=== PATIENT | female | born 1955 | race Caucasian/White ===

== ENCOUNTER 2018-10-22 15:28 | Inpatient (IN) | payer SELFPAY ==
[~2018-10-22] VITALS: Ht 162.6 cm; Wt 51.0 kg
[2018-10-22] MEDS ORDERED: OMEP20TA5 PO (15:50)
[2018-10-22] MEDS ORDERED: LORAZEPAM 2 MG/1 ML VIAL IV ONE ×2 (16:00→17:15)
[2018-10-22] MEDS ORDERED: ONDANSETRON 4 MG/2 ML VIAL IV ONE (16:00)
[2018-10-22] MEDS ORDERED: IV NORMAL SALINE 1000 ML BAG IV ONE (16:00)
[2018-10-22] MEDS ORDERED: ONDANSETRON 4 MG/2 ML VIAL ONE (16:07)
[2018-10-22] MEDS ORDERED: LORAZEPAM 2 MG/1 ML VIAL ONE ×2 (16:08→17:11)
[2018-10-22 16:11] LABS: BASOPHILS # (AUTO) 0.1 K/uL (0.0-8.0); BASOPHILS % (AUTO) 0.6 % (0.0-2.0); HEMOGLOBIN 13.5 g/dL (10.9-14.3); LYMPHOCYTES # (AUTO) 0.4 K/uL (20.0-40.0); LYMPHOCYTES % (AUTO) 3.7 % (20.5-51.5); MEAN CORPUSCULAR HGB CONC 33 g/dL (32.3-35.6); MONOCYTES # (AUTO) 0.3 K/uL (2.0-10.0); MONOCYTES % (AUTO) 3.3 % (0.0-11.0); NEUTROPHILS # (AUTO) 9.6 K/uL (1.8-8.9); NEUTROPHILS % (AUTO) 92.4 % (38.5-71.5); PLATELET COUNT (AUTO) 211 K/uL (179-408); WHITE BLOOD COUNT (AUTO) 10.4 K/uL (3.8-11.8)
--- NOTE | 2018-10-22 16:12 | NUR ---
PT A/OX4, PRESENTS TO THE ER ESCORTED BY A STAFF MEMBER FROM "[facility]. PER PT'S REPORT, SHE CHECKED INTO THE [facility] A FEW HOURS AGO AND WAS HAVING ETOH WITHDRAWAL SYMPTOMS. PT REPORTS THAT HER LAST ALCOHOLIC DRINK WAS YESTERDAY. PT IS HYPERTENSIVE, ER MD AWARE. PT DENIES C/P, SOB, DIZZINESS, HEADACHE.
--- NOTE | 2018-10-22 16:19 | NUR ---
CORRECTION: LAST ALCOHOLIC DRINK WAS 2 DAYS AGO.
[2018-10-22 16:20] LABS: CARBON DIOXIDE 16 mmol/L (21-32); CHLORIDE 90 mmol/L (98-107); CREATININE 1.8 mg/dL (0.6-1.3); GLUCOSE 200 mg/dL (74-106); POTASSIUM 3.5 mmol/L (3.5-5.1); UREA NITROGEN, BLOOD 9 mg/dL (7-18)
[2018-10-22 16:25] LABS: ALKALINE PHOSPHATASE 168 U/L (50-136); ASPARTATE AMINOTRANSFERASE 146 U/L (15-37); BILIRUBIN,DIRECT 0.9 mg/dL (0.0-0.2); TOTAL PROTEIN, SERUM 7.5 g/dL (6.4-8.2)
[2018-10-22 16:26] LABS: ETHANOL < 3 MG/DL (0-0)
[2018-10-22 16:27] LABS: ACETAMINOPHEN < 2.0 ug/mL (10-30)
[2018-10-22 16:41] LABS: *BILIRUBIN,URIN 1+ (NEGATIVE); *BLOOD, URINE Trace-lysed (NEGATIVE); *CLARITY,URINE CLOUDY (CLEAR); *KETONES,URINE TRACE (NEGATIVE); LEUKOCYTE ESTERASE ,URINE 1+ (NEGATIVE); NITRITE, URINE NEGATIVE (NEGATIVE); UGLUCOSE NEGATIVE (NEGATIVE)
[2018-10-22 16:48] LABS: ALANINE AMINOTRANSFERASE 102 U/L (14-59)
[2018-10-22 16:54] LABS: *COLOR,URINE DARK YELLOW (YELLOW)
[2018-10-22 16:55] LABS: BACTERIA,URINE MANY /HPF (NONE SEEN); SQUAMOUS EPITHELIAL CELL,UR MANY /HPF (NONE SEEN)
[2018-10-22 16:59] LABS: *AMPHETAMINE, URINE NEGATIVE (NEGATIVE); *BARBITURATE, URINE NEGATIVE (NEGATIVE); *CANNABINOID, URINE NEGATIVE (NEGATIVE); *COCCAINE, URINE NEGATIVE (NEGATIVE); *OPIATE, URINE NEGATIVE (NEGATIVE); *PHENCYCLIDINE SCREEN,URINE NEGATIVE (NEGATIVE)
--- NOTE | 2018-10-22 17:05 | NUR ---
WARREN GRIFFIN AT BEDSIDE FOR PT UPDATE.
--- NOTE | 2018-10-22 18:20 | NUR ---
[facility] [phone].
--- NOTE | 2018-10-22 18:27 | NUR ---
ADMITTING REPORT GIVEN TO LUPE MOSES.
--- NOTE | 2018-10-22 18:40 | NUR ---
Pt. admitted to 216, under care of JUAN MIGUEL HATHAWAY. Belongs List completed
[2018-10-22 18:56] VITALS: BP 131/77
--- NOTE | 2018-10-22 18:58 | NUR ---
Patient made comfortable in room 216, A/Ox3, tele monitor on, denies pain. Oriented to room and call light, educated patient on using call light for assistance, patient verbalized understanding, bed alarm on, will endorse admission to manager machine
[2018-10-22] MEDS ORDERED: LORAZEPAM 2 MG/1 ML VIAL IV PRN (19:00)
[2018-10-22] MEDS ORDERED: ONDANSETRON 4 MG/2 ML VIAL IV PRN (19:00)
[2018-10-22] MEDS ORDERED: MAGNESIUM HYDROXIDE 30 ML LIQUID UDC PO PRN (19:00)
[2018-10-22] MEDS ORDERED: ZOLPIDEM 5 MG TABLET PO PRN (19:00)
[2018-10-22] MEDS ORDERED: ACETAMINOPHEN 325 MG TABLET PO PRN (19:00)
[2018-10-22] MEDS ORDERED: Z GUARD REMEDY PASTE 57 GM TUBE TOP PRN (19:00)
--- NOTE | 2018-10-22 19:20 | NUR ---
RECEIVED PT AWAKE, ALERT AND ORIENTEDX4. PT SHOWS NO SIGNS OF ACUTE DISTRESS.PT IV INTACT. ADMISSION PROCESS AND CARE PLAN INITIATED. LONG TERM ASSESSMENT DONE. SAFETY AND COMFORT PROVIDED. WILL CONTINUE TO MONITOR
[2018-10-22 19:27] VITALS: BP 112/69
[2018-10-22] MEDS: IV NS 1000 ML 1,000 ML IV PRN (20:14)
[2018-10-22] MEDS: CHLORDIAZEPOXIDE HCL 25 MG CAPSULE PO SCH (20:22)
[2018-10-22] MEDS: THIAMINE HCL 100 MG TABLET PO SCH (20:22)
[2018-10-22] MEDS: MULTIVITAMINS,THERAPEUTIC TABLET PO SCH (20:22)
[2018-10-22] MEDS: FOLIC ACID/VITAMIN B COMP W-C TABLET PO SCH (20:22)
[2018-10-22] MEDS: NICOTINE 14 MG/24HR PATCH TD SCH (20:23)
[2018-10-22] MEDS: CEFTRIAXONE 1 G in IV DEXTROSE 5% 50 ML IV SCH (20:38)
[2018-10-22 23:44] VITALS: BP 111/73
[2018-10-23 03:28] VITALS: BP 111/76
--- NOTE | 2018-10-23 06:08 | NUR ---
PT SLEPT THROUGHOUT THE SHIFT. PT SHOWS NO SIGNS OF DISTRESS. PT IV INTACT. PT COOPERATIVE WITH CARE. SAFETY AND COMFORT PROVIDED. WILL ENDORSE ACCORDINGLY TO INCOMING NURSE FOR CONTINUITY OF CARE.
[2018-10-23] MEDS: PANTOPRAZOLE SODIUM 40 MG TABLET.DR PO SCH (06:19)
[2018-10-23] MEDS: IV NS 1000 ML 1,000 ML IV PRN (06:24)
[2018-10-23] MEDS: HYDROCODONE/APAP 5-325MG TABLET PO PRN ×2 (06:36→13:14)
--- NOTE | 2018-10-23 06:37 | NUR ---
PT GIVEN NORCO AT 636H FOR PAIN SCALE OF 9/1O. PT TOLERATED IT WELL WILL CONTINUE TO MONITOR.
[2018-10-23 06:39] LABS: BASOPHILS % (AUTO) 0.5 % (0.0-2.0); EOSINOPHILS % (AUTO) 0.3 % (0.0-7.0); HEMATOCRIT 31.8 % (31.2-41.9); HEMOGLOBIN 10.6 g/dL (10.9-14.3); LYMPHOCYTES # (AUTO) 1.9 K/uL (20.0-40.0); LYMPHOCYTES % (AUTO) 37.3 % (20.5-51.5); MEAN CORPUSCULAR HEMOGLOBIN 32.9 uug (24.7-32.8); MEAN CORPUSCULAR HGB CONC 33 g/dL (32.3-35.6); MEAN CORPUSCULAR VOLUME 98.5 fL (75.5-95.3); MONOCYTES # (AUTO) 0.1 K/uL (2.0-10.0); MONOCYTES % (AUTO) 2.9 % (0.0-11.0); PLATELET COUNT (AUTO) 121 K/uL (179-408); RED BLOOD CELL COUNT(AUTO) 3.23 MIL/uL (3.63-4.92); WHITE BLOOD COUNT (AUTO) 5.1 K/uL (3.8-11.8)
[2018-10-23 07:01] LABS: BILIRUBIN,TOTAL 1.3 mg/dL (0.2-1.0); MAGNESIUM 1.4 mg/dL (1.8-2.4); PHOSPHOROUS 1.3 mg/dL (2.5-4.9); TOTAL PROTEIN, SERUM 5.4 g/dL (6.4-8.2)
[2018-10-23 07:10] LABS: POTASSIUM 2.1 mmol/L (3.5-5.1)
[2018-10-23] MEDS ORDERED: NEUTRA PHOS PACKET PO ONE (07:30)
[2018-10-23] MEDS: POTASSIUM CHLORIDE 50 ML IV SCH ×4 (08:43→12:04)
[2018-10-23] MEDS: THIAMINE HCL 100 MG TABLET PO SCH (08:48)
[2018-10-23] MEDS: FOLIC ACID/VITAMIN B COMP W-C TABLET PO SCH (08:48)
[2018-10-23] MEDS: MULTIVITAMINS,THERAPEUTIC TABLET PO SCH (08:48)
[2018-10-23] MEDS: CHLORDIAZEPOXIDE HCL 25 MG CAPSULE PO SCH ×2 (08:48→17:00)
[2018-10-23] MEDS: NICOTINE 14 MG/24HR PATCH TD SCH (09:56)
--- NOTE | 2018-10-23 10:16 | NUR ---
Received pt in bed. A/OX4. No acute distress noted. Denies CP or SOB. All due medications given as ordered and tolerated well. IV patent and intact. Skin care rendered. All pt needs attended and met. Kept pt. clean and dry. Safety measures maintained. Call light and all frequently used items in place. Will continue to monitor accordingly.
[2018-10-23 11:10] VITALS: BP 97/56
[2018-10-23] MEDS: MAGNESIUM SULFATE/D5W 100 ML IV SCH ×3 (13:10→15:34)
[2018-10-23 15:23] LABS: CREATININE 1.3 mg/dL (0.6-1.3)
[2018-10-23 15:36] LABS: POTASSIUM 2.4 mmol/L (3.5-5.1)
[2018-10-23 16:32] VITALS: BP 92/54
--- NOTE | 2018-10-23 18:08 | NUR ---
End of shift: All due medications administered as ordered and tolerated well. No new skin condition noted. Kept pt. clean and dry. No ASE from IV infusion. Received CL k:2.4, aware with repeat BMP in AM. Call light and all frequently used items within pt. reach. Will endorse to oncoming shift accordingly.
--- NOTE | 2018-10-23 19:20 | NUR ---
RECEIVED PT AWAKE, ALERT AND ORIENTEDX4. PT SHOWS NO SIGNS OF ACUTE DISTRESS. IV INTACT. SAFETY AND COMFORT PROVIDED. WILL CONTINUE TO MONITOR.
[2018-10-23] MEDS: CEFTRIAXONE 1 G in IV DEXTROSE 5% 50 ML IV SCH (19:23)
[2018-10-23 19:31] VITALS: BP 91/50
[2018-10-23 23:33] VITALS: BP 93/61
[2018-10-24] MEDS: IV NS 1000 ML 1,000 ML IV PRN (02:45)
[2018-10-24 03:46] VITALS: BP 93/58
[2018-10-24] MEDS: PANTOPRAZOLE SODIUM 40 MG TABLET.DR PO SCH (06:02)
--- NOTE | 2018-10-24 06:11 | NUR ---
PT SLEPT THROUGHOUT THE SHIFT. PT SHOWS NO SIGNS OF ACUTE DISTRESS. IV INTACT AND PATENT.PRESCRIBED MEDICATION GIVEN AND PT TOLERATED IT WELL. SAFETY AND COMFORT PROVIDED. WILL ENDORSE ACCORDINGLY TO INCOMING NURSE FOR CONTINUITY OF CARE.
[2018-10-24 06:36] LABS: BASOPHILS % (AUTO) 1.1 % (0.0-2.0); EOSINOPHILS % (AUTO) 1.1 % (0.0-7.0); HEMATOCRIT 25.9 % (31.2-41.9); HEMOGLOBIN 8.9 g/dL (10.9-14.3); LYMPHOCYTES # (AUTO) 1.4 K/uL (20.0-40.0); LYMPHOCYTES % (AUTO) 34.8 % (20.5-51.5); MEAN CORPUSCULAR HGB CONC 35 g/dL (32.3-35.6); MEAN CORPUSCULAR VOLUME 98.5 fL (75.5-95.3); MONOCYTES # (AUTO) 0.2 K/uL (2.0-10.0); NEUTROPHILS # (AUTO) 2.3 K/uL (1.8-8.9); PLATELET COUNT (AUTO) 91 K/uL (179-408); RED BLOOD CELL COUNT(AUTO) 2.63 MIL/uL (3.63-4.92); WHITE BLOOD COUNT (AUTO) 3.9 K/uL (3.8-11.8)
[2018-10-24 06:47] LABS: CREATININE 0.9 mg/dL (0.6-1.3); MAGNESIUM 1.7 mg/dL (1.8-2.4); PHOSPHOROUS 1.5 mg/dL (2.5-4.9)
[2018-10-24 06:50] LABS: POTASSIUM 2.7 mmol/L (3.5-5.1)
--- NOTE | 2018-10-24 06:57 | NUR ---
RECEIVED A CALL FROM LAB. CRITICAL VALUE OF POTASSIUM 2.7. CONTACTED THE WAITING FOR ORDERS. CHARGE NURSE AWARE. PT STABLE. WILL ENDORSE TO ONCOMING NURSE.
[2018-10-24 07:33] LABS: LYMPHOCYTES % (MANUAL) 27 % (20-40); MONOCYTES % (MANUAL) 6 % (2-10); NEUTROPHILS % (MANUAL) 66 % (42-75)
[2018-10-24 07:34] LABS: EOSINOPHILS % (MANUAL) 1 % (0-8)
[2018-10-24] MEDS: MULTIVITAMINS,THERAPEUTIC TABLET PO SCH (08:25)
[2018-10-24] MEDS: FOLIC ACID/VITAMIN B COMP W-C TABLET PO SCH (08:25)
[2018-10-24] MEDS: THIAMINE HCL 100 MG TABLET PO SCH (08:25)
[2018-10-24] MEDS: CHLORDIAZEPOXIDE HCL 25 MG CAPSULE PO SCH ×2 (08:25→16:28)
[2018-10-24] MEDS: NEUTRA PHOS PACKET PO SCH ×2 (08:25→12:49)
[2018-10-24] MEDS: NICOTINE 14 MG/24HR PATCH TD SCH (08:26)
[2018-10-24] MEDS: MAGNESIUM SULFATE/D5W 100 ML IV SCH ×2 (08:29→09:36)
--- NOTE | 2018-10-24 08:53 | NUR ---
Received pt in bed. A/OX4. No acute distress noted. Denies CP or SOB. All due medications given as ordered and tolerated well. IV on RH tender to touch per pt. Started new PIV 24G on LW with good blood return, x2 attempt, flushed with 0.9% NS with no resistance met then secured with tegaderm. ACOUSTICAL LOGGING ENGINEER aware of low mg, K, and phos level with new orders. Per ACOUSTICAL LOGGING ENGINEER will discharge today 10/24/18. Skin care rendered. All pt needs attended and met. Kept pt. clean and dry. Safety measures maintained. Call light and all frequently used items in place. Will continue to monitor accordingly.
[2018-10-24] MEDS: HYDROCODONE/APAP 5-325MG TABLET PO PRN (09:25)
[2018-10-24] MEDS: POTASSIUM CHLORIDE 50 ML IV SCH ×4 (10:56→13:58)
--- NOTE | 2018-10-24 11:00 | NUR ---
Pt. seen fidgeting with IV line and pacing in hallway back to room. Approached pt. in a calm manner, seen Pt. with IV line pulled out on the LT. wrist. No active bleeding noted. Pt. verbalized anxiety. When asked why pt. stated "I dont want to discharge yet I'm not like this." Allowed pt. to verbalized feelings and offered PRN lorazepam for anxiety. Safely assisted pt. back to bed. Pt. amenable. Re-started PIV on LH with 24G x1 attempt with good blood return. Secured IV with tegaderm Pt. tolerated procedure well. PRN ativan given as ordered. Will monitor pt. accordingly.
[2018-10-24] MEDS ORDERED: ONDA4TAB5 PO (11:13)
[2018-10-24] MEDS ORDERED: MULT1TAB73 PO (11:13)
[2018-10-24] MEDS ORDERED: LORA2TAB95 PO (11:13)
[2018-10-24] MEDS ORDERED: VITA0.4T10 PO (11:13)
[2018-10-24] MEDS ORDERED: THIA100T13 PO (11:13)
[2018-10-24] MEDS ORDERED: CEPH500C2 PO (11:13)
--- NOTE | 2018-10-24 11:30 | NUR ---
Pt. refused to have jaimee care rendered. Pt. wants to self-care but unable to fully clean. Offered to assist x3 but insist on self-care.
[2018-10-24 11:54] VITALS: BP 117/69
--- NOTE | 2018-10-24 14:37 | NUR ---
Mid shift report given to receiving RN.
[2018-10-24 15:30] VITALS: BP 105/70
--- NOTE | 2018-10-24 16:05 | NUR ---
PATIENT DISCHARGED AT THIS TIME IN STABLE CONDITION. NO SIGNS OF DISTRESS. LAST BAG OF POTASSIUM CHLORIDE COMPLETED. IV -DISCONNECTED, ID BAND TAKEN OFF. PRESCRIPTIONS AND DISCHARGE PACKET/INSTRUCTIONS/EDUCATION PROVIDED TO PATIENT. PATIENT PICKED UP BY JESU FROM FACILITY AND DISCHARGED FROM [facility].
== END 2018-10-24 16:05 | disposition other institution (70) | DRG 897 ==
LOC: ER 15:32 → TELE 18:33 → MED 10-24 09:05
PROVIDERS: ADMIT Nurse Practitioner Acute Care; ATTEND Nurse Practitioner Acute Care
DX: F10.239 Alcohol dependence with withdrawal, unspecified (principal); N39.0 Urinary tract infection, site not specified; Y90.0 Blood alcohol level of less than 20 mg/100 ml; K21.9 Gastro-esophageal reflux disease without esophagitis; K76.0 Fatty (change of) liver, not elsewhere classified; Z87.11 Personal history of peptic ulcer disease; F17.210 Nicotine dependence, cigarettes, uncomplicated; N28.9 Disorder of kidney and ureter, unspecified; R73.9 Hyperglycemia, unspecified; G25.2 Other specified forms of tremor; R74.0 Nonspecific elevation of levels of transaminase and lactic acid dehydrogenase [LDH]
CPT/HCPCS: 36415; 80307; 83690; 83735; 84100; 85025; 93005; A4663; G0378; G0480; G0480-TC; J0696; J2060; J2405; J3475; J3480; J7030; J7060